=== PATIENT | female | born 1935 | race Caucasian/White ===

== ENCOUNTER 2019-12-06 12:20 | Emergency (ER) | payer MEDICARE, SELFPAY ==
[2019-12-06] VITALS (12 sets, daily range): BP systolic 116–148; BP diastolic 76–81; PULSE 58–72; RESP 15–21; TEMP 36.8; O2SAT 97–100
--- NOTE | ~2019-12-06 | CT_ITS ---
EXAMINATION: CT facial & cervical spine wo DATE: 12/06/2019 14:00 INDICATION: Head injury. TECHNIQUE: Computed tomography (CT) of the maxillofacial region and cervical spine was performed with out intravenous contrast. Automated exposure control and iterative reconstruction technique were empl oyed. The dose-length product was 164.06 mGy-cm. COMPARISON: Cervical spine CT 01/12/2009, head CT 04/12/2019 FINDINGS: MAXILLOFACIAL CT: There is a right ventral ventriculostomy in expected position. There are fractures of the nasal bones with displacement of the left nasal bone. There is mild mucosal thickening in the paranasal sinuses. The orbits are normal. There is mild rightward deviation of the nasal septum. There is dontrell bullos a involving the bilateral middle turbinates. CERVICAL SPINE CT: There is 8 degrees levocurvature of cervical spine. There is 2 mm anterolisthesis of C7 on T1. Verteb ral body heights are normal. There is mildly decreased disc height at C2-C3, C5-C6, and C6-C7 and mod erately decreased disc height at C4-C5. The following disc levels are specifically discussed: C2-C3: There is ankylosis of right uncovertebral joint. There is ankylosis of right facet joint with mild hypertrophy. There is mild right neural foraminal stenosis. There is no central canal stenosis. C3-C4: There is mild bilateral uncovertebral joint osteoarthritis. There is severe right and mild lef t facet joint osteoarthritis. There is mild right neural foraminal stenosis. There is no central hyun l stenosis. C4-C5: There is mild bilateral uncovertebral joint osteoarthritis. There is severe bilateral facet deanne int osteoarthritis. There is mild right neural foraminal stenosis. There is mild central canal stenos is. C5-C6: There is mild left uncovertebral joint osteoarthritis. There is severe right and mild left fac et joint osteoarthritis. There is no neural foraminal stenosis. There is no central canal stenosis. C6-C7: There is no uncovertebral joint osteoarthritis. There is severe bilateral facet joint osteoart hritis. There is mild right neural foraminal stenosis. There is no central canal stenosis. C7-T1: There is no uncovertebral joint osteoarthritis. There is severe bilateral facet joint osteoart hritis. There is mild right neural foraminal stenosis. There is no central canal stenosis. IMPRESSION: 1. Fractures of the nasal bones. 2. Moderate cervical spondylosis. Reviewed, dictated and finalized at location E.
--- NOTE | ~2019-12-06 | CT_ITS ---
EXAMINATION: CT brain wo con DATE: 12/06/2019 13:59 INDICATION: Head injury. TECHNIQUE: Computed tomography (CT) of the head was performed without intravenous contrast. The mA wa s adjusted according to patient size. Iterative reconstruction technique was employed. The dose-lengt h product was 605.33 mGy-cm. COMPARISON: Head CT 04/12/2019 FINDINGS: There is diffuse brain volume loss. There are scattered areas of low attenuation in the cer ebral white matter. There is no intracranial hemorrhage, acute infarction, or abnormal intracranial m ass lesion. The size of the ventricles is likely normal for the degree of brain volume loss. There is a right frontal ventriculostomy catheter with tip in the right lateral ventricle at the midline. The re is mild mucosal thickening in the paranasal sinuses. The orbits are normal. The mastoid air cells are normal. IMPRESSION: 1. Unchanged extensive nonspecific cerebral white matter disease, which likely represents chronic sma ll vessel ischemic disease. 2. Unchanged size of the ventricles. Ventriculostomy in expected position. Reviewed, dictated and finalized at location E. IMPRESSION: 1. Unchanged extensive nonspecific cerebral white matter disease, which likely represents chronic small vessel ischemic disease. 2. Unchanged size of the ventricles. Ventriculostomy in expected position.
--- NOTE | 2019-12-06 12:32 | ECG_ITS ---
Measurements Intervals [place] Rate: 64 P: 44 MT: 191 QRS: -2 QRSD: 87 T: 59 QT: 406 QTc: 420 Interpretive Statements SINUS RHYTHM LOW QRS VOLTAGE IN PRECORDIAL LEADS EARLY PRECORDIAL R/S TRANSITION BORDERLINE ECG Electronically Signed On 12-06-2019 13:10:25 CDT by Valentín Luna D.O.
--- NOTE | 2019-12-06 12:37 | PC.NURSE ---
Medication list requested from [facility] in [place]. 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
--- NOTE | 2019-12-06 12:40 | ED.FALL ---
HPI - Fall General Chief Complaint: Fall Stated Complaint: fall/nosebleed Source: EMS Mode of arrival: EMS Limitations: dementia History of Present Illness HPI Narrative: This patient is an 84 year old female who presents from [facility] for evaluatoin of a fall. Patient was found on the floor at 1130 this morning. Patient is unable tell who and how she fell. Nursing staff reports patient is normally oriented x 2. Patient found with blood on the floor and swelling to her nose. PAtient denies headache, dizziness, chest pain, back pain, extremity pain. Nursing staff states patient does not take any medication. MD complaint: fall Fall from: standing Fall witnessed: no Related Data Allergies Allergy/AdvReac Type Severity Reaction Status Date / Time No Known Allergies Allergy Verified 12/06/19 12:35 Review of Systems Review of Systems: All systems reviewed & are unremarkable except as noted in HPI and below [facility] Family History Family History (Updated 02/13/16 @ 23:19 by DOCTOR UNKNOWN) Mother Cerebrovascular accident Family history of diabetes mellitus in first degree relative Family history of malignant neoplasm of breast in first degree relative Father Family history of coronary artery disease Family history of congestive heart failure Social History Social History Smoking status: Never smoker Alcohol intake: current Gender identity (if verbalized by the patient): Female Exam Const: General: no acute distress and alert Limitations: other limitations (oriented to person ) HENMT: Head: normocephalic and other (abrasion to midforehead; swelling to nasal bridge, dried blood around nost) General nose exam: Other nasal findings present (dried blood around left nare) Throat: posterior oropharynx normal and uvula midline Eyes: Pupils: Equal, round and reactive pupils present Neck: Neck: normal visual inspection and no lymphadenopathy Chest: Chest palpation & inspection: normal inspection of the chest and no tenderness Resp: Effort & Inspection: normal respiratory effort Auscultation: clear to auscultation bilaterally Neuro: General: moves all extremities and no focal motor deficits Extrem: General: no pedal edema Course Reevaluation(s) Reevaluation #1: Patient has no complaints. She was able to ambulate with no complaints of pain or difficulty. she is now oriented to self and place. She is able to explain fall now. She fell and hit face on table Date: 12/06/19 Time: 15:50 Vital Signs Vital signs: Vital Signs Temperature 98.2 F 12/06/19 12:25 Pulse Rate 72 12/06/19 12:25 Respiratory Rate 18 12/06/19 12:25 Blood Pressure 148/81 H 12/06/19 12:25 Pulse Oximetry 100 12/06/19 12:25 Temperature 98.2 F 12/06/19 12:25 Pulse Rate 67 12/06/19 16:15 Respiratory Rate 16 12/06/19 16:15 Blood Pressure 116/76 12/06/19 16:15 Pulse Oximetry 98 12/06/19 16:15 MDM - Fall Lab Data Result diagrams: 12/06/19 12:57 12/06/19 12:57 Labs: Lab Results 12/06/19 12/06/19 12/06/19 Range/Units 12:57 12:57 12:57 WBC 5.5 (4.5-10.0) K/mm3 RBC 3.89 L (4.2-5.4) M/mm3 Hgb 12.3 (12.0-15.0) g/dL Hct 37.2 (37.0-47.0) % MCV 95.6 (80-100) fl MCH 31.6 (26-34) pg MCHC 33.1 (32-36) g/dl RDW 13.1 (11.5-14.5) % Plt Count 163 (150-375) k/mm3 MPV 11.2 H (7.4-10.4) fl Immature Gran % (Auto) 0.2 (0-0.5) % Neut % (Auto) 67.8 (45.5-73.1) % Lymph % (Auto) 21.3 (18.3-44.2) % [place] % (Auto) 8.2 (2.6-8.5) % Eos % (Auto) 1.8 (0-4.4) % Baso % (Auto) 0.7 (0.2-1.2) % Lymph # (Auto) 1.17 (0.9-3.2) K/mm3 [place] # (Auto) 0.5 (0.1-0.6) K/mm3 Eos # (Auto) 0.1 (0-0.3) K/mm3 Baso # (Auto) 0.0 (0.0-0.1) K/mm3 Abs Immat Gran (auto) 0.01 (0.00-0.031) K/mm3 Absolute Neuts (auto) 3.7 (1.3-6.7) K/mm3 Absolute Nucleated RBC 0.0 (0.0-0.012
[2019-12-06 13:06] LABS: Basophils Percent Auto 0.7 % (0.2-1.2); Eosinophils Absolute Auto 0.1 K/mm3 (0-0.3); Eosinophils Percent Auto 1.8 % (0-4.4); Hematocrit 37.2 % (37.0-47.0); Hemoglobin 12.3 g/dL (12.0-15.0); Immature Granulocyte Absolute 0.01 K/mm3 (0.00-0.031); Immature Granulocyte Percent A 0.2 % (0-0.5); Lymphocytes Absolute Auto 1.17 K/mm3 (0.9-3.2); Lymphocytes Percent Auto 21.3 % (18.3-44.2); Mean Corpuscular HGB Conc 33.1 g/dl (32-36); Mean Corpuscular Hemoglobin 31.6 pg (26-34); Mean Corpuscular Volume 95.6 fl (80-100); Mean Platelet Volume 11.2 fl (7.4-10.4); Monocytes Absolute Auto 0.5 K/mm3 (0.1-0.6); Monocytes Percent Auto 8.2 % (2.6-8.5); Neutrophils Absolute Auto 3.7 K/mm3 (1.3-6.7); Neutrophils Percent Auto 67.8 % (45.5-73.1); Platelet Count Result 163 k/mm3 (150-375); Red Blood Count 3.89 M/mm3 (4.2-5.4); Red Cell Distribution Width 13.1 % (11.5-14.5); White Blood Count 5.5 K/mm3 (4.5-10.0)
[2019-12-06 13:16] LABS: Prothrombin Time 12.9 Seconds (11.1-14.7)
[2019-12-06 13:17] LABS: Partial Thromboplastin Time 27.3 SECONDS (22.3-36.8)
[2019-12-06 13:21] LABS: Alanine Aminotransferase 12 U/L (4-35); Alkaline Phosphatase 94 U/L (38-126); Aspartate Amino Transferase 25 U/L (14-36); Bilirubin,Total 0.4 mg/dL (0.2-1.3); Blood Urea Nitrogen 14 mg/dL (7-17); Carbon Dioxide 31 mmol/L (22-30); Chloride 104 mmol/L (98-107); Estimated CRCL calculation 61 ml/min; Estimated Glomerular Filt Rate > 60; Glucose 104 mg/dL (65-105); Potassium 3.7 mmol/L (3.4-5.0); Sodium 140 mmol/L (137-145)
[2019-12-06] MEDS: TETANUS,DIPHTHERIA,AC PERTUSSIS ADULT (0.5 ML) BOOSTRIX IM (16:07)
== END 2019-12-06 16:40 ==
PROVIDERS: Emergency Provider General Practice; PCP Family Medicine
DX: S02.2XXA Fracture of nasal bones, initial encounter for closed fracture (principal); M47.812 Spondylosis without myelopathy or radiculopathy, cervical region; R90.82 White matter disease, unspecified; Z23 Encounter for immunization; W19.XXXA Unspecified fall, initial encounter; R94.31 Abnormal electrocardiogram [ECG] [EKG]
CPT/HCPCS: 36415; 70450; 70486; 72125; 80053; 85025; 85610; 85730; 90471; 90715; 93005; 99284